=== PATIENT | female | born 1930 | race Caucasian/White ===

== ENCOUNTER 2016-12-30 16:40 | Inpatient (IN) | payer MEDICARE, OTHER ==
[~2016-12-30] VITALS: Ht 154.9 cm; Wt 59.7 kg
[~2016-12-30 16:40] MED LIST: APIX2.5T PO; ATEN50TA PO; CALC600T2 PO; CHOL2000 PO; FAMO20 PO; FURO20 PO; GABA600T PO; GLYB5 PO; LEVO100 PO; LOSA100T29 PO; OXYB5 PO; RALO60 PO; SERT50TA12 PO; SITA50 PO; TRAZ-144 PO
[2016-12-30 17:22] LABS: GLUCOSE COMMENT 1 Doctor Notified; GLUCOSE,POINT OF CARE 88 MG/DL (70-110)
[2016-12-30] MEDS ORDERED: ASPIRIN 81 MG CHEWABLE TABLET PO ONE (18:15)
[2016-12-30] MEDS ORDERED: NITROGLYCERIN 2% (1 GM=INCH) PACKET TP ONE (18:15)
[2016-12-30 18:19] LABS: BASOPHILS % (AUTO) 0.5 % (0.0-2.0); EOSINOPHILS % (AUTO) 2.7 % (1.0-6.0); HEMATOCRIT 39.4 % (36-46); HEMOGLOBIN 12.7 g/dL (12.0-16.0); MEAN CORPUSCULAR HEMOGLOBIN 28.1 pg (26.0-34.0); MEAN CORPUSCULAR HGB CONC 32.3 G/dL (31.0-37.0); MEAN CORPUSCULAR VOLUME 87 fL (80-100); MONOCYTES # (AUTO) 0.6 K/uL (0.1-1.0); MONOCYTES % (AUTO) 7.3 % (2.0-9.0); NEUTROPHILS # (AUTO) 6.9 K/uL (1.8-7.7); NEUTROPHILS % (AUTO) 78.5 % (40.0-70.0); PLATELET COUNT (AUTO) 198 K/uL (150-450); RED BLOOD CELL COUNT(AUTO) 4.54 MIL/uL (4.00-5.20); RED CELL DISTRIBUTION WIDTH 16.2 % (11.5-14.5); WHITE BLOOD COUNT (AUTO) 8.8 K/uL (4.5-11.0)
[2016-12-30 18:38] LABS: CALCIUM, TOTAL 8.6 mg/dL (8.8-10.5); CREATININE 1.45 mg/dL (0.60-1.30); POTASSIUM 3.4 mmol/L (3.5-5.1)
[2016-12-30 18:44] LABS: ALBUMIN 3.3 g/dL (3.4-5.0); BILIRUBIN,TOTAL 0.5 mg/dL (0.1-1.0); TOTAL PROTEIN, SERUM 7.7 g/dL (6.4-8.2)
[2016-12-30] MEDS ORDERED: SODIUM CHLORIDE 0.9% 1,000 ML IV ONE (18:45)
[2016-12-30] MEDS ORDERED: POTASSIUM CHLORIDE 20 MEQ ER TABLET PO ONE (18:45)
[2016-12-30] MEDS ORDERED: *CLINICAL-CEFTAROLINE DOSING CLINICAL ONE (19:00)
[2016-12-30] MEDS ORDERED: ACETAMINOPHEN 325 MG TABLET PO PRN (19:30)
[2016-12-30] MEDS ORDERED: 0.9% SODIUM CHLORIDE 10 ML SYRINGE IVP PRN (19:30)
[2016-12-30] MEDS ORDERED: ONDANSETRON HCL 4 MG/2 ML VIAL IVP PRN (19:30)
[2016-12-30] MEDS: CEFTAROLINE FOSAMIL 300 MG in DEXTROSE 5%-WATER 150 ML IV SCH ×2 (20:27→20:30)
[2016-12-30 23:07] VITALS: BP 160/90
[2016-12-31] MEDS ORDERED: INFLUENZA VIRUS VACCINE QVS 2016-17 (3YR+)/PF 60 MCG/0.5 ML SYRINGE IM ONE (00:30)
[2016-12-31] MEDS ORDERED: PNEUMOCOCCAL VACCINE POLYVALENT 0.5 ML VIAL [PPSV23] IM ONE (00:30)
[2016-12-31 04:44] VITALS: BP 162/92
[2016-12-31 07:28] VITALS: BP 194/83
[2016-12-31] MEDS ORDERED: SODIUM CHLORIDE 0.9% 250 ML IV ONE (08:40)
[2016-12-31] MEDS: CEFTAROLINE FOSAMIL 300 MG in DEXTROSE 5%-WATER 150 ML IV SCH (10:25)
[2016-12-31 11:11] VITALS: BP 161/94
[2016-12-31 15:28] VITALS: BP 167/96
[2016-12-31 19:55] VITALS: BP 167/115
[2016-12-31] MEDS: SERTRALINE HCL 50 MG TABLET PO SCH (20:25)
[2016-12-31] MEDS: APIXABAN 2.5 MG TABLET PO SCH (20:25)
[2016-12-31] MEDS: OXYBUTYNIN CHLORIDE 5 MG TABLET PO SCH (20:25)
[2016-12-31] MEDS: CALCIUM CARBONATE 648 MG TABLET PO SCH (20:25)
[2016-12-31] MEDS: TraZODone HCL 50 MG TABLET PO SCH (20:26)
[2016-12-31] MEDS: GABAPENTIN 300 MG CAPSULE PO SCH (20:26)
[2017-01-01] VITALS (7 sets, daily range): BP systolic 153–178; BP diastolic 73–104
[2017-01-01] MEDS: LEVOTHYROXINE SODIUM 75 MCG TABLET PO SCH (06:31)
[2017-01-01] MEDS: CEFTAROLINE FOSAMIL 300 MG in DEXTROSE 5%-WATER 150 ML IV SCH ×2 (06:34→17:39)
[2017-01-01] MEDS: LOSARTAN POTASSIUM 50 MG TABLET PO SCH (08:37)
[2017-01-01] MEDS: APIXABAN 2.5 MG TABLET PO SCH ×2 (08:38→20:59)
[2017-01-01] MEDS: CHOLECALCIFEROL (VIT D3) 1,000 UNITS TABLET PO SCH (08:38)
[2017-01-01] MEDS: CALCIUM CARBONATE 648 MG TABLET PO SCH ×2 (08:38→20:59)
[2017-01-01] MEDS: SitaGLIPtin PHOSPHATE 50 MG TABLET PO SCH (08:38)
[2017-01-01] MEDS: GlyBURIDE 5 MG TABLET PO SCH (08:38)
[2017-01-01] MEDS: GABAPENTIN 300 MG CAPSULE PO SCH ×3 (08:38→21:00)
[2017-01-01] MEDS: FAMOTIDINE 20 MG TABLET PO SCH (08:39)
[2017-01-01] MEDS: OXYBUTYNIN CHLORIDE 5 MG TABLET PO SCH ×2 (08:39→21:00)
[2017-01-01] MEDS: RALOXIFENE HCL 60 MG TABLET PO SCH (08:41)
[2017-01-01] MEDS: FUROSEMIDE 20 MG TABLET PO SCH (08:44)
[2017-01-01 09:00] LABS: MAGNESIUM 1.8 mg/dL (1.80-2.40); PHOSPHORUS 2.6 mg/dL (2.5-4.9)
[2017-01-01] MEDS ORDERED: ATENOLOL 50 MG TABLET PO SCH (09:00)
[2017-01-01] MEDS ORDERED: MAGNESIUM OXIDE 400 MG TABLET PO PRN (15:30)
[2017-01-01] MEDS ORDERED: MAGNESIUM SULFATE 4 GM/WATER 100 ML IV PRN (15:30)
[2017-01-01] MEDS ORDERED: MAGNESIUM SULFATE 2 GM in DEXTROSE 5%-WATER 50 ML IV PRN (15:30)
[2017-01-01] MEDS ORDERED: POTASSIUM CHLORIDE 20 MEQ ER TABLET PO PRN (15:30)
[2017-01-01] MEDS ORDERED: POTASSIUM CHL 10 MEQ/WATER 50 ML IV PRN (15:30)
[2017-01-01 15:38] LABS: ALBUMIN 3.1 g/dL (3.4-5.0); CALCIUM, TOTAL 8.6 mg/dL (8.8-10.5); CREATININE 1.39 mg/dL (0.60-1.30); POTASSIUM 3.7 mmol/L (3.5-5.1)
[2017-01-01] MEDS ORDERED: SODIUM CHLORIDE 0.9% 100 ML ONE (17:41)
[2017-01-01] MEDS: ATENOLOL 50 MG TABLET PO SCH (20:59)
[2017-01-01] MEDS: SERTRALINE HCL 50 MG TABLET PO SCH (21:00)
[2017-01-01] MEDS: TraZODone HCL 50 MG TABLET PO SCH (21:00)
[2017-01-02 04:27] VITALS: BP 171/93
[2017-01-02] MEDS: CEFTAROLINE FOSAMIL 300 MG in DEXTROSE 5%-WATER 150 ML IV SCH ×2 (05:44→17:17)
[2017-01-02] MEDS: LEVOTHYROXINE SODIUM 75 MCG TABLET PO SCH (05:45)
[2017-01-02 06:55] LABS: ALBUMIN 2.9 g/dL (3.4-5.0); BILIRUBIN,TOTAL 0.8 mg/dL (0.1-1.0); CALCIUM, TOTAL 8.7 mg/dL (8.8-10.5); CREATININE 1.38 mg/dL (0.60-1.30); MAGNESIUM 1.6 mg/dL (1.80-2.40); TOTAL PROTEIN, SERUM 7.3 g/dL (6.4-8.2)
[2017-01-02 07:59] VITALS: BP 174/68
[2017-01-02] MEDS: CHOLECALCIFEROL (VIT D3) 1,000 UNITS TABLET PO SCH (09:06)
[2017-01-02] MEDS: ATENOLOL 50 MG TABLET PO SCH ×2 (09:06→21:01)
[2017-01-02] MEDS: LOSARTAN POTASSIUM 50 MG TABLET PO SCH (09:06)
[2017-01-02] MEDS: APIXABAN 2.5 MG TABLET PO SCH ×2 (09:06→21:01)
[2017-01-02] MEDS: GABAPENTIN 300 MG CAPSULE PO SCH ×3 (09:06→21:01)
[2017-01-02] MEDS: CALCIUM CARBONATE 648 MG TABLET PO SCH ×2 (09:07→21:01)
[2017-01-02] MEDS: FAMOTIDINE 20 MG TABLET PO SCH (09:07)
[2017-01-02] MEDS: GlyBURIDE 5 MG TABLET PO SCH (09:07)
[2017-01-02] MEDS: SitaGLIPtin PHOSPHATE 50 MG TABLET PO SCH (09:07)
[2017-01-02] MEDS: RALOXIFENE HCL 60 MG TABLET PO SCH (09:07)
[2017-01-02] MEDS: FUROSEMIDE 20 MG TABLET PO SCH (09:08)
[2017-01-02] MEDS: OXYBUTYNIN CHLORIDE 5 MG TABLET PO SCH ×2 (09:08→21:01)
[2017-01-02] MEDS: POTASSIUM CHLORIDE 20 MEQ ER TABLET PO PRN (11:11)
[2017-01-02] MEDS ORDERED: SODIUM CHLORIDE 0.9% 100 ML ONE (11:15)
[2017-01-02 11:23] VITALS: BP 108/59
[2017-01-02 15:55] VITALS: BP 131/66
[2017-01-02 19:40] VITALS: BP 134/73
[2017-01-02] MEDS ORDERED: ZOLPIDEM TARTRATE 5 MG TABLET PO PRN (19:45)
[2017-01-02] MEDS ORDERED: ONDANSETRON HCL 4 MG/2 ML VIAL IVP PRN (19:45)
[2017-01-02] MEDS ORDERED: *CLINICAL-RX DOSING [ENTER DRUG IN COMMENTS] CLINICAL ONE (19:45)
[2017-01-02] MEDS: CefTRIAXone 1 GM/DEXTROSE 50 ML IV SCH (21:01)
[2017-01-02] MEDS: SERTRALINE HCL 50 MG TABLET PO SCH (21:01)
[2017-01-02] MEDS: TraZODone HCL 50 MG TABLET PO SCH (21:01)
[2017-01-02] MEDS ORDERED: SODIUM CHLORIDE 0.9% 250 ML IV ONE (22:38)
[2017-01-03] VITALS (8 sets, daily range): BP systolic 137–161; BP diastolic 66–95
[2017-01-03] MEDS: LEVOTHYROXINE SODIUM 75 MCG TABLET PO SCH (06:22)
[2017-01-03 06:58] LABS: CALCIUM, TOTAL 8.8 mg/dL (8.8-10.5); CREATININE 1.56 mg/dL (0.60-1.30); MAGNESIUM 2.2 mg/dL (1.80-2.40); POTASSIUM 3.7 mmol/L (3.5-5.1)
[2017-01-03] MEDS: GABAPENTIN 300 MG CAPSULE PO SCH (09:04)
[2017-01-03] MEDS: ATENOLOL 50 MG TABLET PO SCH ×2 (09:05→21:39)
[2017-01-03] MEDS: RALOXIFENE HCL 60 MG TABLET PO SCH (09:05)
[2017-01-03] MEDS: OXYBUTYNIN CHLORIDE 5 MG TABLET PO SCH ×2 (09:05→21:38)
[2017-01-03] MEDS: FAMOTIDINE 20 MG TABLET PO SCH (09:05)
[2017-01-03] MEDS: APIXABAN 2.5 MG TABLET PO SCH ×2 (09:05→21:38)
[2017-01-03] MEDS: LOSARTAN POTASSIUM 50 MG TABLET PO SCH (09:05)
[2017-01-03] MEDS: SitaGLIPtin PHOSPHATE 50 MG TABLET PO SCH (09:05)
[2017-01-03] MEDS: CALCIUM CARBONATE 648 MG TABLET PO SCH ×2 (09:06→21:37)
[2017-01-03] MEDS: CHOLECALCIFEROL (VIT D3) 1,000 UNITS TABLET PO SCH (09:06)
[2017-01-03] MEDS: FUROSEMIDE 20 MG TABLET PO SCH (09:06)
[2017-01-03] MEDS: GlyBURIDE 5 MG TABLET PO SCH (09:06)
[2017-01-03] MEDS: LOPERAMIDE HCL 2 MG CAPSULE PO PRN (19:00)
[2017-01-03] MEDS: CefTRIAXone 1 GM/DEXTROSE 50 ML IV SCH (21:14)
[2017-01-03] MEDS: TraZODone HCL 50 MG TABLET PO SCH (21:37)
[2017-01-03] MEDS: GABAPENTIN 100 MG CAPSULE PO SCH (21:39)
[2017-01-03] MEDS: SERTRALINE HCL 50 MG TABLET PO SCH (21:39)
[2017-01-04] MEDS: LOPERAMIDE HCL 2 MG CAPSULE PO PRN (06:27)
[2017-01-04] MEDS: LEVOTHYROXINE SODIUM 75 MCG TABLET PO SCH (06:27)
[2017-01-04 07:41] LABS: CALCIUM, TOTAL 8.8 mg/dL (8.8-10.5); CREATININE 1.43 mg/dL (0.60-1.30); POTASSIUM 3.4 mmol/L (3.5-5.1)
[2017-01-04 08:02] VITALS: BP 149/66
[2017-01-04] MEDS: CALCIUM CARBONATE 648 MG TABLET PO SCH ×2 (10:07→21:55)
[2017-01-04] MEDS: GABAPENTIN 100 MG CAPSULE PO SCH ×3 (10:07→21:55)
[2017-01-04] MEDS: FUROSEMIDE 20 MG TABLET PO SCH (10:07)
[2017-01-04] MEDS: GlyBURIDE 5 MG TABLET PO SCH (10:07)
[2017-01-04] MEDS: ATENOLOL 50 MG TABLET PO SCH ×2 (10:07→21:56)
[2017-01-04] MEDS: CHOLECALCIFEROL (VIT D3) 1,000 UNITS TABLET PO SCH (10:07)
[2017-01-04] MEDS: FAMOTIDINE 20 MG TABLET PO SCH (10:07)
[2017-01-04] MEDS: SitaGLIPtin PHOSPHATE 50 MG TABLET PO SCH (10:07)
[2017-01-04] MEDS: RALOXIFENE HCL 60 MG TABLET PO SCH (10:07)
[2017-01-04] MEDS: OXYBUTYNIN CHLORIDE 5 MG TABLET PO SCH ×2 (10:07→21:55)
[2017-01-04] MEDS: APIXABAN 2.5 MG TABLET PO SCH ×2 (10:07→21:55)
[2017-01-04] MEDS: LOSARTAN POTASSIUM 50 MG TABLET PO SCH (10:07)
[2017-01-04 11:53] VITALS: BP 161/82
[2017-01-04 15:29] VITALS: BP 162/70
[2017-01-04] MEDS: POTASSIUM CHLORIDE 20 MEQ ER TABLET PO PRN (17:02)
[2017-01-04 19:51] VITALS: BP 152/70
[2017-01-04] MEDS: TraZODone HCL 50 MG TABLET PO SCH (21:55)
[2017-01-04] MEDS: CefTRIAXone 1 GM/DEXTROSE 50 ML IV SCH (21:55)
[2017-01-04] MEDS: SERTRALINE HCL 50 MG TABLET PO SCH (21:56)
[2017-01-04 23:21] VITALS: BP 112/55
[2017-01-05 04:24] VITALS: BP 110/73
[2017-01-05] MEDS: LEVOTHYROXINE SODIUM 75 MCG TABLET PO SCH (06:29)
[2017-01-05 07:41] VITALS: BP 131/61
[2017-01-05] MEDS: FAMOTIDINE 20 MG TABLET PO SCH (09:30)
[2017-01-05] MEDS: ATENOLOL 50 MG TABLET PO SCH (09:30)
[2017-01-05] MEDS: APIXABAN 2.5 MG TABLET PO SCH (09:30)
[2017-01-05] MEDS: CALCIUM CARBONATE 648 MG TABLET PO SCH (09:30)
[2017-01-05] MEDS: FUROSEMIDE 20 MG TABLET PO SCH (09:30)
[2017-01-05] MEDS: OXYBUTYNIN CHLORIDE 5 MG TABLET PO SCH (09:33)
[2017-01-05] MEDS: RALOXIFENE HCL 60 MG TABLET PO SCH (09:33)
[2017-01-05] MEDS: SitaGLIPtin PHOSPHATE 50 MG TABLET PO SCH (09:33)
[2017-01-05] MEDS: GlyBURIDE 5 MG TABLET PO SCH (09:33)
[2017-01-05] MEDS: CHOLECALCIFEROL (VIT D3) 1,000 UNITS TABLET PO SCH (09:36)
[2017-01-05] MEDS: LOSARTAN POTASSIUM 50 MG TABLET PO SCH (09:36)
[2017-01-05] MEDS: GABAPENTIN 100 MG CAPSULE PO SCH (09:39)
[2017-01-05 11:14] VITALS: BP 121/53
[2017-01-05 15:06] VITALS: BP 133/64
[2017-01-05] MEDS ORDERED: NYSTATIN 15 GM POWDER BOTTLE TP SCH (16:00)
[2017-01-05] MEDS ORDERED: GABAPENTIN 300 MG CAPSULE PO SCH (16:00)
[2017-01-05] MEDS ORDERED: LOPE2 PO (19:49)
== END 2017-01-05 18:35 | DRG 603 ==
LOC: EMS 16:41 → 5S 21:13
PROVIDERS: ADMIT Internal Medicine; ATTEND Internal Medicine
PROC: 3E0234Z Introduction of Serum, Toxoid and Vaccine into Muscle, Percutaneous Approach (ICD-10-PCS; principal; 2016-12-31)
DX: L03.115 Cellulitis of right lower limb (principal); E44.0 Moderate protein-calorie malnutrition; R07.9 Chest pain, unspecified; E11.22 Type 2 diabetes mellitus with diabetic chronic kidney disease; E03.9 Hypothyroidism, unspecified; R32 Unspecified urinary incontinence; E78.5 Hyperlipidemia, unspecified; F32.9 Major depressive disorder, single episode, unspecified; S22.069D Unspecified fracture of T7-T8 vertebra, subsequent encounter for fracture with routine healing; E55.9 Vitamin D deficiency, unspecified; E83.42 Hypomagnesemia; E87.6 Hypokalemia; G47.00 Insomnia, unspecified; H40.9 Unspecified glaucoma; I13.10 Hypertensive heart and chronic kidney disease without heart failure, with stage 1 through stage 4 chronic kidney disease, or unspecified chronic kidney disease; N18.3 Chronic kidney disease, stage 3 (moderate); M81.0 Age-related osteoporosis without current pathological fracture; K21.9 Gastro-esophageal reflux disease without esophagitis; I87.2 Venous insufficiency (chronic) (peripheral); I73.9 Peripheral vascular disease, unspecified; X58.XXXD Exposure to other specified factors, subsequent encounter; E11.49 Type 2 diabetes mellitus with other diabetic neurological complication; R07.89 Other chest pain; Z79.899 Other long term (current) drug therapy; Z79.84 Long term (current) use of oral hypoglycemic drugs; Z86.718 Personal history of other venous thrombosis and embolism; Z90.710 Acquired absence of both cervix and uterus; Z95.0 Presence of cardiac pacemaker; Z98.890 Other specified postprocedural states; Z98.61 Coronary angioplasty status; Z23 Encounter for immunization; Z68.24 Body mass index [BMI] 24.0-24.9, adult
CPT/HCPCS: 82962; 83036; 83735; 84100; 84132; 87040; 87324; 87449; 90471; 93005; 93306; 93971; 96360; 97161; 99285; J0696; J0712; J3475; J7030; J7050; J7060